=== PATIENT | female | born 1950 | race African-American/Black ===

== ENCOUNTER 2021-05-05 12:18 | Inpatient (IN) | payer MEDICARE ==
[~2021-05-05] VITALS: Ht 160 cm; Wt 48.2 kg
[2021-05-05] MEDS ORDERED: SODIUM CHLORIDE 0.9% 1,000 ML IV ONE (13:15)
[2021-05-05 13:54] LABS: BASOPHILS % 0.9 % (0.0-2.0); HEMATOCRIT. 27.4 % (36.0-48.0); HEMOGLOBIN. 9.1 g/dL (12.0-16.0); LYMPHOCYTES % 15.4 % (20.0-50.0); MEAN CORPUSCULAR HEMOGLOBIN 35.8 pg (28.0-32.0); MEAN CORPUSCULAR VOLUME 108.1 fL (81.0-99.0); MEAN PLATELET VOLUME 8.7 fl (7.4-10.4); NEUTROPHILS % 72.7 % (40.0-76.0); PLATELET 288 x1000/uL (130-400); RED BLOOD CELL COUNT 2.53 mill/uL (4.2-5.4); RED CELL DISTRIBUTION WIDTH 16.4 % (11.6-14.6)
[2021-05-05 14:00] LABS: CHLORIDE 113 mEq/L (98-107)
[2021-05-05 14:10] LABS: PHOSPHORUS 3.3 mg/dL (2.5-4.9)
[2021-05-05 17:33] LABS: T4 FREE 0.92 ng/dL (0.76-1.46)
[2021-05-05 22:38] LABS: CLARITY URINE CLOUDY (CLEAR); COLOR URINE YELLOW (YELLOW); KETONES URINE NEGATIVE (NEGATIVE); LEUKOCYTE ESTERASE URINE 3+ (NEGATIVE); NITRITE URINE NEGATIVE (NEGATIVE); OCCULT BLOOD URINE 1+ (NEGATIVE); PROTEIN URINE TRACE (NEGATIVE)
[2021-05-05 22:52] LABS: *BARBITURATES SCREEN URINE NEGATIVE (NEGATIVE); *BENZODIAZEPINES SCREEN URINE NEGATIVE (NEGATIVE); *COCAINE SCREEN URINE NEGATIVE (NEGATIVE); CANNABINOID URINE SCREEN PRESUMTIVE POSITIVE (NEGATIVE); METHADONE URINE SCREEN NEGATIVE (NEGATIVE); OPIATES URINE SCREEN PRESUMTIVE POSITIVE (NEGATIVE); PHENCYCLIDINE URINE SCREEN NEGATIVE (NEGATIVE)
[2021-05-05 22:53] LABS: *AMPHETAMINES SCREEN URINE NEGATIVE (NEGATIVE)
[2021-05-06 01:00] VITALS: BP 100/59
[2021-05-06] MEDS ORDERED: DOCUSATE SODIUM 100MG CAPSULE PO PRN (01:00)
[2021-05-06] MEDS ORDERED: ZOLPIDEM TARTRATE 5MG TABLET PO PRN (01:00)
[2021-05-06] MEDS ORDERED: IPRATROPIUM/ALBUTEROL 0.5-3(2.5)MG/3ML NEB HHN PRN (01:00)
[2021-05-06] MEDS ORDERED: CLONIDINE 0.1MG TABLET PO PRN (01:00)
[2021-05-06] MEDS ORDERED: ACETAMINOPHEN 325MG TABLET PO PRN (01:00)
[2021-05-06] MEDS ORDERED: ONDANSETRON HCL 4MG/2ML INJ IV PRN (01:00)
[2021-05-06] MEDS ORDERED: LEVOFLOXACIN 500MG PREMIX 100 ML IV SCH ×2 (02:00)
[2021-05-06 04:00] VITALS: BP 88/58
[2021-05-06] MEDS ORDERED: OXYC-100 MT (04:38)
[2021-05-06] MEDS ORDERED: LISI20TA31 PO (04:39)
[2021-05-06] MEDS ORDERED: BECL10.6 INH (04:40)
[2021-05-06] MEDS: PANTOPRAZOLE 40MG DR TABLET PO SCH ×2 (06:30→21:34)
[2021-05-06 06:57] LABS: BASOPHILS % 1.3 % (0.0-2.0); EOSINOPHILS % 7.6 % (0.0-5.0); HEMATOCRIT. 23.5 % (36.0-48.0); HEMOGLOBIN. 7.5 g/dL (12.0-16.0); LYMPHOCYTES % 23.1 % (20.0-50.0); MEAN CORPUSCULAR HEMOGLOBIN 35.6 pg (28.0-32.0); MEAN CORPUSCULAR VOLUME 111.5 fL (81.0-99.0); MONOCYTES % 6.7 % (2.0-8.0); NEUTROPHILS % 61.3 % (40.0-76.0); PLATELET 213 x1000/uL (130-400); RED CELL DISTRIBUTION WIDTH 16.9 % (11.6-14.6)
[2021-05-06 07:23] LABS: FOLIC ACID (FOLATE) SERUM 15.8 ng/mL (>5.38)
[2021-05-06 08:00] VITALS: BP 93/54
[2021-05-06] MEDS ORDERED: ENOXAPARIN 30MG/0.3ML SYR SUBCUT SCH (09:00)
[2021-05-06] MEDS ORDERED: ENOXAPARIN 40MG/0.4ML SYR SUBCUT SCH (09:00)
[2021-05-06 10:58] LABS: PLATELET ESTIMATE NORMAL
[2021-05-06 12:00] VITALS: BP 100/53
[2021-05-06 16:00] VITALS: BP 98/56
[2021-05-06 20:00] VITALS: BP 88/49
[2021-05-07] VITALS: BP 89/54
[2021-05-07 04:00] VITALS: BP 92/53
[2021-05-07] MEDS: PANTOPRAZOLE 40MG DR TABLET PO SCH (05:18)
[2021-05-07 07:38] LABS: EOSINOPHILS % 4.5 % (0.0-5.0); HEMATOCRIT. 23.4 % (36.0-48.0); HEMOGLOBIN. 7.6 g/dL (12.0-16.0); LYMPHOCYTES % 19.4 % (20.0-50.0); MEAN CORPUSCULAR HEMOGLOBIN 35.7 pg (28.0-32.0); MEAN CORPUSCULAR VOLUME 109.6 fL (81.0-99.0); MEAN PLATELET VOLUME 8.9 fl (7.4-10.4); NEUTROPHILS % 66.1 % (40.0-76.0); PLATELET 230 x1000/uL (130-400); RED BLOOD CELL COUNT 2.13 mill/uL (4.2-5.4); RED CELL DISTRIBUTION WIDTH 17.1 % (11.6-14.6)
[2021-05-07 08:27] LABS: VITAMIN B12 SERUM 1696 pg/mL (211-911)
[2021-05-07 10:32] LABS: FERRITIN 878 ng/mL (10-291)
[2021-05-07 12:00] VITALS: BP 112/70
[2021-05-07] MEDS ORDERED: LEVO500T89 MT (14:08)
[2021-05-07 14:50] VITALS: BP 112/70
[2021-05-07 15:06] LABS: HEPATITIS B SURFACE ANTIGEN NEGATIVE
[2021-05-08] MEDS ORDERED: LEVOFLOXACIN 250MG PREMIX 50 ML IV SCH (02:00)
[2021-05-09 07:07] LABS: A/G RATIO 0.7 (0.7-1.7); ALBUMIN 2.4 g/dL (2.9-4.4); ALPHA-1-GLOBULIN 0.2 g/dL (0.0-0.4); ALPHA-2-GLOBULIN 0.6 g/dL (0.4-1.0); BETA GLOBULIN 0.7 g/dL (0.7-1.3); GLOBULIN TOTAL 3.5 g/dL (2.2-3.9); M-SPIKE Not Observed g/dL (Not Observed); TOTAL PROTEIN SERUM 5.9 g/dL (6.0-8.5)
== END 2021-05-07 15:50 | disposition home or self-care (01) | DRG 291 ==
LOC: ER 12:18 → 7EST 20:26 → EDBEDREQ 20:49 → EDBEDREQTM 20:49 → ENRESERV 22:13
PROVIDERS: ADMIT Internal Medicine Pulmonary Disease; ATTEND Internal Medicine Pulmonary Disease
DX: I11.0 Hypertensive heart disease with heart failure (principal); E43 Unspecified severe protein-calorie malnutrition; N17.0 Acute kidney failure with tubular necrosis; N39.0 Urinary tract infection, site not specified; Z68.1 Body mass index [BMI] 19.9 or less, adult; I50.9 Heart failure, unspecified; J45.909 Unspecified asthma, uncomplicated; Z96.653 Presence of artificial knee joint, bilateral; D64.9 Anemia, unspecified; E04.1 Nontoxic single thyroid nodule; E87.8 Other disorders of electrolyte and fluid balance, not elsewhere classified; F12.90 Cannabis use, unspecified, uncomplicated; K76.0 Fatty (change of) liver, not elsewhere classified; K82.8 Other specified diseases of gallbladder; K70.10 Alcoholic hepatitis without ascites; Z79.899 Other long term (current) drug therapy; Z87.891 Personal history of nicotine dependence; Z90.710 Acquired absence of both cervix and uterus; Z91.041 Radiographic dye allergy status
CPT/HCPCS: 36415; 71045; 71250; 74176; 76700; 80048; 80053; 80076; 80305; 81003; 82248; 82378; 82553; 82607; 82728; 82746; 83540; 83550; 83605; 83735; 83880; 84100; 84134; 84155; 84165; 84439; 84443; 84481; 84484; 85025; 85044; 86705; 86709; 86803; 87340; 93005; 97162; 99285; J1650; J1956; J2405; J7030; J7040

== ENCOUNTER 2022-04-12 05:26 | Inpatient (IN) | payer MEDICARE ==
[~2022-04-12] VITALS: Ht 160 cm; Wt 43.5 kg
[~2022-04-12 05:26] MED LIST: BECL10.6 INH; LEVO-65 MT; LISI20TA31 PO; OXYC-100 MT
[2022-04-12 06:09] LABS: BASOPHILS % 0.3 % (0.0-2.0); EOSINOPHILS % 0.2 % (0.0-5.0); HEMATOCRIT. 39.1 % (36.0-48.0); HEMOGLOBIN. 13.1 g/dL (12.0-16.0); LYMPHOCYTES % 11.2 % (20.0-50.0); MEAN CORPUSCULAR HEMOGLOBIN 32.7 pg (28.0-32.0); MEAN CORPUSCULAR VOLUME 97.5 fL (81.0-99.0); MEAN PLATELET VOLUME 9.1 fl (7.4-10.4); MONOCYTES % 4.8 % (2.0-8.0); NEUTROPHILS % 83.5 % (40.0-76.0); PLATELET 163 x1000/uL (130-400); RED BLOOD CELL COUNT 4.01 mill/uL (4.2-5.4); RED CELL DISTRIBUTION WIDTH 12.8 % (11.6-14.6)
[2022-04-12 06:34] LABS: CHLORIDE 100 mEq/L (98-107)
[2022-04-12] MEDS ORDERED: METHYLPREDNISOLONE SOD SUCC 125 MG/2 ML VIAL IV STA (06:56)
[2022-04-12] MEDS ORDERED: ALBUTEROL (0.083%) 2.5MG/3ML NEB HHN STA (06:56)
[2022-04-12] MEDS ORDERED: ALBUTEROL (0.083%) 2.5MG/3ML NEB HHN ONE (08:00)
[2022-04-12 09:22] LABS: BG BASE EXCESS -10.1 mmol/L (-2.0-2.0); BG CARBOXYHEMOGLOBIN 0.1 % (0.5-1.5); BG DEOXYHEMOGLOBIN 0.3 % (0.0-5.0); BG FRACTION INSPIRED OXYGEN 100; BG HCO3 ACT 18.1 mmol/L (22.0-26.0); BG METHEMOGLOBIN 0.4 % (0.0-1.5); BG OXYGEN SATURATION 99.7 % (92.0-98.5); BG OXYHEMOGLOBIN 99.2 % (94.0-97.0); BG PH 7.186 (7.350-7.450); BG PO2 418.4 mmHg (75.0-100.0); BG SAMPLE SITE RIGHT RADIAL; BG TOTAL HEMOGLOBIN 14.1 g/dL (12.0-18.0); BG TOTAL RESPIRATORY RATE 32 b/min; BG VENT MODE MASK - BIPAP
[2022-04-12] MEDS ORDERED: ENOXAPARIN 60MG/0.6ML SYR SUBCUT ONE (10:45)
[2022-04-12] MEDS ORDERED: HYDROCODONE/ACETAMINOPHEN 10/325MG TABLET PO ONE (10:45)
[2022-04-12] MEDS ORDERED: AZITHROMYCIN 500MG/250ML 250 ML IV SCH ×2 (17:15→22:00)
[2022-04-12] MEDS ORDERED: ACETAMINOPHEN 325MG TABLET PO PRN (17:15)
[2022-04-12] MEDS ORDERED: GUAIFENESIN 200MG/10ML SUGAR FREE UDC PO PRN (17:15)
[2022-04-12] MEDS ORDERED: ONDANSETRON HCL 4MG/2ML INJ IV PRN (17:15)
[2022-04-12] MEDS ORDERED: ENOXAPARIN 40MG/0.4ML SYR SUBCUT SCH ×2 (17:15→18:00)
[2022-04-12] MEDS ORDERED: DOCUSATE SODIUM 100MG CAPSULE PO PRN (17:15)
[2022-04-12] MEDS: LISINOPRIL 20MG TABLET PO SCH (17:15)
[2022-04-12] MEDS ORDERED: MAGNESIUM/ALUMINUM HYDROXIDE/SIMETHICONE 30ML UDC PO PRN (17:15)
[2022-04-12 17:20] LABS: BG CARBOXYHEMOGLOBIN 0.2 % (0.5-1.5); BG DEOXYHEMOGLOBIN 1.9 % (0.0-5.0); BG OXYGEN SATURATION 98.1 % (92.0-98.5); BG OXYHEMOGLOBIN 97.9 % (94.0-97.0); BG PCO2 39.6 mmHg (35.0-45.0); BG PH 7.298 (7.350-7.450); BG PO2 108.3 mmHg (75.0-100.0); BG SAMPLE SITE RIGHT BRACHIAL; BG TOTAL HEMOGLOBIN 14.3 g/dL (12.0-18.0); BG VENT MODE MASK - BIPAP
[2022-04-12] MEDS: IPRATROPIUM/ALBUTEROL 0.5-3(2.5)MG/3ML NEB HHN SCH ×2 (17:51→20:37)
[2022-04-12] MEDS ORDERED: PIPERACILLIN/TAZ 3.375G PREMIX 50 ML IV SCH ×2 (18:00→22:00)
[2022-04-12 19:55] VITALS: BP 116/60
[2022-04-12 20:00] VITALS: BP 116/60
[2022-04-12] MEDS: FAMOTIDINE 20MG TABLET PO SCH (20:32)
[2022-04-12] MEDS: ATORVASTATIN CALCIUM 40MG TABLET PO SCH (20:33)
[2022-04-12] MEDS: METHYLPREDNISOLONE SOD SUCC 125 MG/2 ML VIAL IV SCH (21:49)
[2022-04-12] MEDS ORDERED: PIPERACILLIN/TAZOBACTAM 3.375 G in DEXTROSE 5% WATER 50 ML IV ONE (22:00)
[2022-04-13] VITALS (87 sets, daily range): BP systolic 80–180; BP diastolic 45–101
[2022-04-13 00:08] LABS: BG BASE EXCESS -8.7 mmol/L (-2.0-2.0); BG CARBOXYHEMOGLOBIN 0.3 % (0.5-1.5); BG FRACTION INSPIRED OXYGEN 50; BG HCO3 ACT 18.6 mmol/L (22.0-26.0); BG METHEMOGLOBIN 0.3 % (0.0-1.5); BG OXYHEMOGLOBIN 98.4 % (94.0-97.0); BG PH 7.234 (7.350-7.450); BG PO2 168.5 mmHg (75.0-100.0); BG SAMPLE SITE LEFT BRACHIAL; BG TOTAL HEMOGLOBIN 13.7 g/dL (12.0-18.0); BG VENT MODE MASK - BIPAP
[2022-04-13] MEDS ORDERED: SODIUM CHLORIDE 0.9% 1,000 ML IV NR (00:30)
[2022-04-13] MEDS ORDERED: PHENYLEPHRINE 100 MG in DEXT 5% WATER 240 ML IV PRN (01:15)
[2022-04-13] MEDS ORDERED: PHENYLEPHRINE 50 MG in DEXT 5% WATER 245 ML IV PRN (01:15)
[2022-04-13 01:53] LABS: BG BASE EXCESS -8.6 mmol/L (-2.0-2.0); BG CARBOXYHEMOGLOBIN 0.4 % (0.5-1.5); BG DEOXYHEMOGLOBIN 1.6 % (0.0-5.0); BG FRACTION INSPIRED OXYGEN 50; BG HCO3 ACT 17.5 mmol/L (22.0-26.0); BG METHEMOGLOBIN 0.3 % (0.0-1.5); BG OXYGEN SATURATION 98.4 % (92.0-98.5); BG OXYHEMOGLOBIN 97.7 % (94.0-97.0); BG PCO2 38.3 mmHg (35.0-45.0); BG PH 7.278 (7.350-7.450); BG PO2 127.1 mmHg (75.0-100.0); BG SAMPLE SITE RIGHT BRACHIAL; BG TOTAL RESPIRATORY RATE 22 b/min; BG VENT MODE VENT - AC
[2022-04-13] MEDS: LORAZEPAM 2MG/ML CPJ IV PRN ×4 (02:41→22:23)
[2022-04-13] MEDS: IPRATROPIUM/ALBUTEROL 0.5-3(2.5)MG/3ML NEB HHN SCH ×5 (04:35→20:50)
[2022-04-13 05:40] LABS: BASOPHILS % 0.1 % (0.0-2.0); HEMATOCRIT. 38.5 % (36.0-48.0); HEMOGLOBIN. 13.1 g/dL (12.0-16.0); LYMPHOCYTES % 8.4 % (20.0-50.0); MEAN CORPUSCULAR HEMOGLOBIN 33.3 pg (28.0-32.0); MEAN CORPUSCULAR VOLUME 97.9 fL (81.0-99.0); MEAN PLATELET VOLUME 10.6 fl (7.4-10.4); MONOCYTES % 3.5 % (2.0-8.0); PLATELET 150 x1000/uL (130-400); RED BLOOD CELL COUNT 3.93 mill/uL (4.2-5.4); RED CELL DISTRIBUTION WIDTH 12.9 % (11.6-14.6)
[2022-04-13] MEDS: METHYLPREDNISOLONE SOD SUCC 125 MG/2 ML VIAL IV SCH ×3 (05:48→21:59)
[2022-04-13 05:49] LABS: CHLORIDE 103 mEq/L (98-107)
[2022-04-13] MEDS: PIPERACILLIN/TAZOBACTAM 3.375 G in DEXTROSE 5% WATER 50 ML IV SCH ×2 (05:49→13:02)
[2022-04-13] MEDS ORDERED: ACETAMINOPHEN 650MG/20.3ML UDC PO PRN (08:00)
[2022-04-13] MEDS: FAMOTIDINE 20MG TABLET PO SCH ×2 (08:05→20:50)
[2022-04-13] MEDS: LISINOPRIL 20MG TABLET PO SCH (08:05)
[2022-04-13] MEDS: ACETAMINOPHEN 650MG/20.3ML UDC PO PRN (08:08)
[2022-04-13 08:24] LABS: BG BASE EXCESS -4.5 mmol/L (-2.0-2.0); BG CARBOXYHEMOGLOBIN 0.8 % (0.5-1.5); BG DEOXYHEMOGLOBIN 1.8 % (0.0-5.0); BG FRACTION INSPIRED OXYGEN 40; BG HCO3 ACT 18.7 mmol/L (22.0-26.0); BG METHEMOGLOBIN 0.2 % (0.0-1.5); BG OXYGEN SATURATION 98.2 % (92.0-98.5); BG OXYHEMOGLOBIN 97.2 % (94.0-97.0); BG PCO2 29.7 mmHg (35.0-45.0); BG PH 7.416 (7.350-7.450); BG PO2 99.9 mmHg (75.0-100.0); BG SAMPLE SITE RIGHT RADIAL; BG TOTAL HEMOGLOBIN 14.4 g/dL (12.0-18.0); BG VENT MODE VENT - AC
[2022-04-13] MEDS ORDERED: CEFTRIAXONE 1 G PREMIX 50 ML IV SCH (13:00)
[2022-04-13] MEDS: ENOXAPARIN 30MG/0.3ML SYR SUBCUT SCH (14:13)
[2022-04-13] MEDS: AZITHROMYCIN 500MG in DEXTROSE 5% WATER 250ML IV SCH (17:39)
[2022-04-13] MEDS: SODIUM CHLORIDE 0.9% 1,000 ML IV SCH (20:07)
[2022-04-13] MEDS: CEFTRIAXONE 1,000 MG in DEXTROSE 5% WATER 50 ML IV SCH (20:43)
[2022-04-13] MEDS: ATORVASTATIN CALCIUM 40MG TABLET PO SCH (20:50)
[2022-04-13] MEDS ORDERED: PREDNISONE 20MG TABLET PO NR (22:00)
[2022-04-14] VITALS (44 sets, daily range): BP systolic 88–123; BP diastolic 50–84
[2022-04-14] MEDS: IPRATROPIUM/ALBUTEROL 0.5-3(2.5)MG/3ML NEB HHN SCH ×7 (00:02→23:58)
[2022-04-14] MEDS ORDERED: SODIUM CHLORIDE 0.9% 1,000 ML IV SCH (00:30)
[2022-04-14] MEDS ORDERED: PREDNISONE 20MG TABLET PO NR ×2 (04:00→10:00)
[2022-04-14] MEDS: METHYLPREDNISOLONE SOD SUCC 125 MG/2 ML VIAL IV SCH ×3 (05:40→22:06)
[2022-04-14 06:40] LABS: HEMATOCRIT 36.9 % (36.0-48.0); HEMOGLOBIN 12.4 g/dL (12.0-16.0); MEAN CORPUSCULAR HEMOGLOBIN 32.8 pg (28.0-32.0); MEAN CORPUSCULAR VOLUME 97.8 fL (81.0-99.0); PLATELET 167 x1000/uL (130-400); RED BLOOD CELL COUNT 3.77 mill/uL (4.2-5.4); RED CELL DISTRIBUTION WIDTH 13.2 % (11.6-14.6)
[2022-04-14 07:14] LABS: CHLORIDE 102 mEq/L (98-107)
[2022-04-14 07:36] LABS: BG BASE EXCESS -6.3 mmol/L (-2.0-2.0); BG CARBOXYHEMOGLOBIN 0.3 % (0.5-1.5); BG DEOXYHEMOGLOBIN 1.3 % (0.0-5.0); BG HCO3 ACT 16.4 mmol/L (22.0-26.0); BG METHEMOGLOBIN 0.3 % (0.0-1.5); BG OXYGEN SATURATION 98.7 % (92.0-98.5); BG OXYHEMOGLOBIN 98.1 % (94.0-97.0); BG PCO2 25.4 mmHg (35.0-45.0); BG PH 7.428 (7.350-7.450); BG PO2 139.2 mmHg (75.0-100.0); BG SAMPLE SITE RIGHT BRACHIAL; BG TOTAL HEMOGLOBIN 12.9 g/dL (12.0-18.0); BG VENT MODE VENT - AC
[2022-04-14] MEDS: FAMOTIDINE 20MG TABLET PO SCH ×2 (08:45→20:37)
[2022-04-14] MEDS: LISINOPRIL 20MG TABLET PO SCH (08:45)
[2022-04-14] MEDS ORDERED: DIPHENHYDRAMINE 50MG/ML VIAL IV NR (10:00)
[2022-04-14] MEDS ORDERED: IOHEXOL-350 100 ML BOTTLE ONE (12:02)
[2022-04-14] MEDS: ENOXAPARIN 30MG/0.3ML SYR SUBCUT SCH (13:56)
[2022-04-14] MEDS: SODIUM CHLORIDE 0.9% 1,000 ML IV SCH (14:00)
[2022-04-14] MEDS: AZITHROMYCIN 500MG in DEXTROSE 5% WATER 250ML IV SCH (16:50)
[2022-04-14] MEDS: ACETAMINOPHEN 650MG/20.3ML UDC PO PRN (19:57)
[2022-04-14] MEDS: LORAZEPAM 2MG/ML CPJ IV PRN (19:57)
[2022-04-14] MEDS: CEFTRIAXONE 1,000 MG in DEXTROSE 5% WATER 50 ML IV SCH (20:37)
[2022-04-14] MEDS: ATORVASTATIN CALCIUM 40MG TABLET PO SCH (20:37)
[2022-04-15] VITALS (40 sets, daily range): BP systolic 100–126; BP diastolic 51–86
[2022-04-15] MEDS: IPRATROPIUM/ALBUTEROL 0.5-3(2.5)MG/3ML NEB HHN SCH ×5 (04:16→20:59)
[2022-04-15] MEDS: LORAZEPAM 2MG/ML CPJ IV PRN ×2 (04:16→13:39)
[2022-04-15 05:27] LABS: HEMATOCRIT. 37.1 % (36.0-48.0); HEMOGLOBIN. 12.6 g/dL (12.0-16.0); MEAN CORPUSCULAR HEMOGLOBIN 33.2 pg (28.0-32.0); MEAN CORPUSCULAR VOLUME 97.7 fL (81.0-99.0); MEAN PLATELET VOLUME 9.7 fl (7.4-10.4); PLATELET 173 x1000/uL (130-400); RED CELL DISTRIBUTION WIDTH 12.9 % (11.6-14.6)
[2022-04-15 05:28] LABS: CHLORIDE 110 mEq/L (98-107)
[2022-04-15] MEDS: METHYLPREDNISOLONE SOD SUCC 125 MG/2 ML VIAL IV SCH ×3 (05:48→21:06)
[2022-04-15 07:29] LABS: PLATELET ESTIMATE NORMAL
[2022-04-15] MEDS: LISINOPRIL 20MG TABLET PO SCH (08:14)
[2022-04-15] MEDS: FAMOTIDINE 20MG TABLET PO SCH ×2 (08:14→21:07)
[2022-04-15 08:58] LABS: BG BASE EXCESS -6.1 mmol/L (-2.0-2.0); BG CARBOXYHEMOGLOBIN 0.3 % (0.5-1.5); BG DEOXYHEMOGLOBIN 2.2 % (0.0-5.0); BG FRACTION INSPIRED OXYGEN 30; BG HCO3 ACT 17.3 mmol/L (22.0-26.0); BG METHEMOGLOBIN 0.3 % (0.0-1.5); BG OXYGEN SATURATION 97.8 % (92.0-98.5); BG OXYHEMOGLOBIN 97.2 % (94.0-97.0); BG PCO2 28.3 mmHg (35.0-45.0); BG PH 7.404 (7.350-7.450); BG PO2 105.7 mmHg (75.0-100.0); BG SAMPLE SITE RIGHT BRACHIAL; BG TOTAL HEMOGLOBIN 12.4 g/dL (12.0-18.0); BG VENT MODE VENT - AC
[2022-04-15] MEDS ORDERED: POTASSIUM CHLORIDE INJ 40 MEQ in DEXT 5% WATER 250 ML IV ONE (09:00)
[2022-04-15] MEDS: ASPIRIN 81MG TABLET PO SCH (09:36)
[2022-04-15] MEDS ORDERED: ENOXAPARIN 40MG/0.4ML SYR SUBCUT SCH (10:00)
[2022-04-15] MEDS: KCL 20MEQ/100ML X 2 FOR TOTAL KCL 40MEQ/200ML IV SCH ×2 (10:07→12:14)
[2022-04-15] MEDS: SODIUM CHLORIDE 0.9% 1,000 ML IV SCH (10:07)
[2022-04-15] MEDS: ACETAMINOPHEN 650MG/20.3ML UDC PO PRN (12:11)
[2022-04-15 16:08] LABS: INR 1.1; PROTHROMBIN TIME 11.3 sec (9.6-11.0)
[2022-04-15] MEDS: AZITHROMYCIN 500MG in DEXTROSE 5% WATER 250ML IV SCH (17:16)
[2022-04-15] MEDS ORDERED: SODIUM BICARBONATE 8.4% 1 MEQ/ML 50ML SYR IV NR (21:00)
[2022-04-15] MEDS: CEFTRIAXONE 1,000 MG in DEXTROSE 5% WATER 50 ML IV SCH (21:06)
[2022-04-15] MEDS: CARVEDILOL 3.125 MG TABLET PO SCH (21:07)
[2022-04-15] MEDS: ATORVASTATIN CALCIUM 40MG TABLET PO SCH (21:07)
[2022-04-15] MEDS: CALCITONIN,SALMON, 3.7 ML NASAL SPRAY ONENSTRL SCH (22:07)
[2022-04-16] VITALS (57 sets, daily range): BP systolic 91–140; BP diastolic 65–94
[2022-04-16] MEDS: IPRATROPIUM/ALBUTEROL 0.5-3(2.5)MG/3ML NEB HHN SCH ×6 (00:39→20:40)
[2022-04-16 05:59] LABS: HEMATOCRIT. 37.4 % (36.0-48.0); HEMOGLOBIN. 12.8 g/dL (12.0-16.0); MEAN CORPUSCULAR HEMOGLOBIN 32.9 pg (28.0-32.0); MEAN CORPUSCULAR VOLUME 96.1 fL (81.0-99.0); MEAN PLATELET VOLUME 9.9 fl (7.4-10.4); PLATELET 247 x1000/uL (130-400); RED BLOOD CELL COUNT 3.89 mill/uL (4.2-5.4)
[2022-04-16] MEDS: METHYLPREDNISOLONE SOD SUCC 125 MG/2 ML VIAL IV SCH ×3 (06:11→21:17)
[2022-04-16] MEDS: SODIUM CHLORIDE 0.9% 1,000 ML IV SCH (06:11)
[2022-04-16 06:12] LABS: CHLORIDE 110 mEq/L (98-107)
[2022-04-16 07:23] LABS: PLATELET ESTIMATE NORMAL
[2022-04-16 08:25] LABS: BG CARBOXYHEMOGLOBIN 0.3 % (0.5-1.5); BG DEOXYHEMOGLOBIN 1.2 % (0.0-5.0); BG FRACTION INSPIRED OXYGEN 40; BG HCO3 ACT 19.5 mmol/L (22.0-26.0); BG METHEMOGLOBIN 0.3 % (0.0-1.5); BG OXYGEN SATURATION 98.8 % (92.0-98.5); BG OXYHEMOGLOBIN 98.2 % (94.0-97.0); BG PH 7.461 (7.350-7.450); BG PO2 145.3 mmHg (75.0-100.0); BG SAMPLE SITE RIGHT RADIAL; BG TOTAL HEMOGLOBIN 13.1 g/dL (12.0-18.0); BG VENT MODE VENT - AC
[2022-04-16] MEDS ORDERED: LISINOPRIL 20MG TABLET PO SCH (09:00)
[2022-04-16] MEDS: ASPIRIN 81MG TABLET PO SCH (09:05)
[2022-04-16] MEDS: CALCITONIN,SALMON, 3.7 ML NASAL SPRAY ONENSTRL SCH (09:05)
[2022-04-16] MEDS: FAMOTIDINE 20MG TABLET PO SCH ×2 (09:05→21:17)
[2022-04-16] MEDS: ENOXAPARIN 30MG/0.3ML SYR SUBCUT SCH (09:06)
[2022-04-16] MEDS: CITALOPRAM HYDROBROMIDE 10MG TABLET PO SCH (09:06)
[2022-04-16] MEDS: CARVEDILOL 3.125 MG TABLET PO SCH ×2 (09:06→21:16)
[2022-04-16] MEDS: HYDROCODONE/ACETAMINOPHEN 5/325MG TABLET PO PRN ×2 (15:09→21:17)
[2022-04-16 16:24] LABS: CLARITY URINE CLEAR (CLEAR); COLOR URINE YELLOW (YELLOW); KETONES URINE 1+ (NEGATIVE); LEUKOCYTE ESTERASE URINE NEGATIVE (NEGATIVE); NITRITE URINE NEGATIVE (NEGATIVE); OCCULT BLOOD URINE TRACE (NEGATIVE); PROTEIN URINE 1+ (NEGATIVE); SPECIFIC GRAVITY URINE 1.031 (1.005-1.030); UROBILINOGEN URINE 0.2 E.U./dL (0.2-1.0)
[2022-04-16] MEDS: AZITHROMYCIN 500MG in DEXTROSE 5% WATER 250ML IV SCH (16:31)
[2022-04-16] MEDS: CEFTRIAXONE 1,000 MG in DEXTROSE 5% WATER 50 ML IV SCH (21:16)
[2022-04-16] MEDS: ATORVASTATIN CALCIUM 40MG TABLET PO SCH (21:17)
[2022-04-17] VITALS (39 sets, daily range): BP systolic 98–156; BP diastolic 71–99
[2022-04-17] MEDS: IPRATROPIUM/ALBUTEROL 0.5-3(2.5)MG/3ML NEB HHN SCH ×6 (00:33→20:54)
[2022-04-17] MEDS: HYDROCODONE/ACETAMINOPHEN 5/325MG TABLET PO PRN ×5 (03:19→22:26)
[2022-04-17] MEDS: SODIUM CHLORIDE 0.9% 1,000 ML IV SCH ×2 (03:20→23:00)
[2022-04-17] MEDS: METHYLPREDNISOLONE SOD SUCC 125 MG/2 ML VIAL IV SCH ×3 (05:21→21:48)
[2022-04-17 05:47] LABS: BASOPHILS % 0.1 % (0.0-2.0); HEMATOCRIT. 34.1 % (36.0-48.0); HEMOGLOBIN. 11.5 g/dL (12.0-16.0); LYMPHOCYTES % 8.9 % (20.0-50.0); MEAN CORPUSCULAR HEMOGLOBIN 32.6 pg (28.0-32.0); MEAN CORPUSCULAR VOLUME 96.3 fL (81.0-99.0); MEAN PLATELET VOLUME 9.9 fl (7.4-10.4); MONOCYTES % 3.7 % (2.0-8.0); NEUTROPHILS % 87.3 % (40.0-76.0); PLATELET 163 x1000/uL (130-400); RED BLOOD CELL COUNT 3.54 mill/uL (4.2-5.4); RED CELL DISTRIBUTION WIDTH 13.2 % (11.6-14.6)
[2022-04-17 06:04] LABS: CHLORIDE 113 mEq/L (98-107)
[2022-04-17 08:14] LABS: BG BASE EXCESS -1.9 mmol/L (-2.0-2.0); BG CARBOXYHEMOGLOBIN 0.3 % (0.5-1.5); BG DEOXYHEMOGLOBIN 1.3 % (0.0-5.0); BG HCO3 ACT 20.5 mmol/L (22.0-26.0); BG METHEMOGLOBIN 0.2 % (0.0-1.5); BG OXYGEN SATURATION 98.7 % (92.0-98.5); BG OXYHEMOGLOBIN 98.2 % (94.0-97.0); BG PCO2 28.2 mmHg (35.0-45.0); BG PO2 161.6 mmHg (75.0-100.0); BG SAMPLE SITE RIGHT BRACHIAL; BG VENT MODE VENT - AC
[2022-04-17] MEDS: ASPIRIN 81MG TABLET PO SCH (09:35)
[2022-04-17] MEDS: CITALOPRAM HYDROBROMIDE 10MG TABLET PO SCH (09:35)
[2022-04-17] MEDS: ENOXAPARIN 30MG/0.3ML SYR SUBCUT SCH (09:35)
[2022-04-17] MEDS: CARVEDILOL 3.125 MG TABLET PO SCH ×2 (09:36→21:48)
[2022-04-17] MEDS: LISINOPRIL 5MG TABLET PO SCH (09:40)
[2022-04-17] MEDS: FAMOTIDINE 20MG TABLET PO SCH ×2 (09:40→21:48)
[2022-04-17] MEDS ORDERED: NALOXONE HCL 0.4MG/ML VIAL IV PRN (09:45)
[2022-04-17 14:10] LABS: BG BASE EXCESS -4.7 mmol/L (-2.0-2.0); BG CARBOXYHEMOGLOBIN 0.3 % (0.5-1.5); BG DEOXYHEMOGLOBIN 1.3 % (0.0-5.0); BG HCO3 ACT 20.2 mmol/L (22.0-26.0); BG METHEMOGLOBIN 0.2 % (0.0-1.5); BG OXYGEN SATURATION 98.7 % (92.0-98.5); BG OXYHEMOGLOBIN 98.2 % (94.0-97.0); BG PH 7.356 (7.350-7.450); BG PO2 155.4 mmHg (75.0-100.0); BG SAMPLE SITE RIGHT BRACHIAL; BG TOTAL HEMOGLOBIN 12.6 g/dL (12.0-18.0); BG VENT MODE VENT - SIMV
[2022-04-17] MEDS: ATORVASTATIN CALCIUM 40MG TABLET PO SCH (21:48)
[2022-04-17] MEDS: CEFTRIAXONE 1,000 MG in DEXTROSE 5% WATER 50 ML IV SCH (21:48)
[2022-04-18] VITALS (45 sets, daily range): BP systolic 102–158; BP diastolic 71–104
[2022-04-18] MEDS: IPRATROPIUM/ALBUTEROL 0.5-3(2.5)MG/3ML NEB HHN SCH ×7 (00:28→23:58)
[2022-04-18] MEDS: HYDROCODONE/ACETAMINOPHEN 5/325MG TABLET PO PRN ×4 (02:57→22:47)
[2022-04-18 05:27] LABS: BASOPHILS % 0.1 % (0.0-2.0); HEMATOCRIT. 32.7 % (36.0-48.0); HEMOGLOBIN. 11.3 g/dL (12.0-16.0); LYMPHOCYTES % 7.8 % (20.0-50.0); MEAN CORPUSCULAR HEMOGLOBIN 33.2 pg (28.0-32.0); MEAN CORPUSCULAR VOLUME 96.3 fL (81.0-99.0); MEAN PLATELET VOLUME 9.8 fl (7.4-10.4); MONOCYTES % 3.7 % (2.0-8.0); NEUTROPHILS % 88.4 % (40.0-76.0); PLATELET 166 x1000/uL (130-400); RED CELL DISTRIBUTION WIDTH 13.2 % (11.6-14.6)
[2022-04-18 05:37] LABS: CHLORIDE 114 mEq/L (98-107)
[2022-04-18] MEDS: METHYLPREDNISOLONE SOD SUCC 125 MG/2 ML VIAL IV SCH ×3 (05:41→21:30)
[2022-04-18] MEDS: FAMOTIDINE 20MG TABLET PO SCH ×2 (08:37→21:31)
[2022-04-18] MEDS: CARVEDILOL 3.125 MG TABLET PO SCH ×2 (08:38→21:31)
[2022-04-18] MEDS: LISINOPRIL 5MG TABLET PO SCH (08:38)
[2022-04-18] MEDS: ASPIRIN 81MG TABLET PO SCH (08:38)
[2022-04-18] MEDS: CITALOPRAM HYDROBROMIDE 10MG TABLET PO SCH (08:38)
[2022-04-18] MEDS: ENOXAPARIN 30MG/0.3ML SYR SUBCUT SCH (08:38)
[2022-04-18 09:12] LABS: BG CARBOXYHEMOGLOBIN 0.3 % (0.5-1.5); BG DEOXYHEMOGLOBIN 2.3 % (0.0-5.0); BG FRACTION INSPIRED OXYGEN 40; BG HCO3 ACT 18.9 mmol/L (22.0-26.0); BG METHEMOGLOBIN 0.2 % (0.0-1.5); BG OXYGEN SATURATION 97.7 % (92.0-98.5); BG OXYHEMOGLOBIN 97.2 % (94.0-97.0); BG PCO2 28.5 mmHg (35.0-45.0); BG PO2 97.6 mmHg (75.0-100.0); BG SAMPLE SITE RIGHT RADIAL; BG TOTAL HEMOGLOBIN 12.3 g/dL (12.0-18.0); BG VENT MODE VENT - AC
[2022-04-18] MEDS: SODIUM CHLORIDE 0.9% 1,000 ML IV SCH (21:00)
[2022-04-18] MEDS: CEFTRIAXONE 1,000 MG in DEXTROSE 5% WATER 50 ML IV SCH (21:30)
[2022-04-18] MEDS: ATORVASTATIN CALCIUM 40MG TABLET PO SCH (21:30)
[2022-04-19] VITALS (45 sets, daily range): BP systolic 106–159; BP diastolic 66–102
[2022-04-19] MEDS: HYDROCODONE/ACETAMINOPHEN 5/325MG TABLET PO PRN ×5 (02:58→21:24)
[2022-04-19] MEDS: IPRATROPIUM/ALBUTEROL 0.5-3(2.5)MG/3ML NEB HHN SCH ×5 (03:50→20:37)
[2022-04-19 03:54] LABS: HEMATOCRIT. 36.4 % (36.0-48.0); HEMOGLOBIN. 12.2 g/dL (12.0-16.0); MEAN CORPUSCULAR HEMOGLOBIN 32.6 pg (28.0-32.0); MEAN CORPUSCULAR VOLUME 97.6 fL (81.0-99.0); MEAN PLATELET VOLUME 9.4 fl (7.4-10.4); PLATELET 189 x1000/uL (130-400); RED BLOOD CELL COUNT 3.73 mill/uL (4.2-5.4); RED CELL DISTRIBUTION WIDTH 13.3 % (11.6-14.6)
[2022-04-19 04:06] LABS: CHLORIDE 115 mEq/L (98-107)
[2022-04-19] MEDS: METHYLPREDNISOLONE SOD SUCC 125 MG/2 ML VIAL IV SCH ×3 (05:21→21:24)
[2022-04-19] MEDS: LISINOPRIL 5MG TABLET PO SCH (08:48)
[2022-04-19] MEDS: ASPIRIN 81MG TABLET PO SCH (08:48)
[2022-04-19] MEDS: CITALOPRAM HYDROBROMIDE 10MG TABLET PO SCH (08:48)
[2022-04-19] MEDS: CARVEDILOL 3.125 MG TABLET PO SCH ×2 (08:48→21:24)
[2022-04-19] MEDS: ENOXAPARIN 30MG/0.3ML SYR SUBCUT SCH (08:48)
[2022-04-19] MEDS: FAMOTIDINE 20MG TABLET PO SCH ×2 (08:48→21:23)
[2022-04-19] MEDS: CALCITONIN,SALMON, 3.7 ML NASAL SPRAY ONENSTRL SCH (08:49)
[2022-04-19 09:09] LABS: BG BASE EXCESS -2.5 mmol/L (-2.0-2.0); BG CARBOXYHEMOGLOBIN 0.3 % (0.5-1.5); BG DEOXYHEMOGLOBIN 0.9 % (0.0-5.0); BG FRACTION INSPIRED OXYGEN 40; BG HCO3 ACT 20.3 mmol/L (22.0-26.0); BG METHEMOGLOBIN 0.6 % (0.0-1.5); BG OXYGEN SATURATION 99.1 % (92.0-98.5); BG OXYHEMOGLOBIN 98.2 % (94.0-97.0); BG PCO2 29.4 mmHg (35.0-45.0); BG PH 7.456 (7.350-7.450); BG PO2 194.9 mmHg (75.0-100.0); BG SAMPLE SITE RIGHT RADIAL; BG VENT MODE VENT - AC
[2022-04-19 10:00] LABS: PLATELET ESTIMATE NORMAL
[2022-04-19 14:32] LABS: BG CARBOXYHEMOGLOBIN 0.1 % (0.5-1.5); BG DEOXYHEMOGLOBIN 1.5 % (0.0-5.0); BG FRACTION INSPIRED OXYGEN 40; BG HCO3 ACT 20.4 mmol/L (22.0-26.0); BG METHEMOGLOBIN 0.3 % (0.0-1.5); BG OXYGEN SATURATION 98.5 % (92.0-98.5); BG OXYHEMOGLOBIN 98.1 % (94.0-97.0); BG PCO2 34.8 mmHg (35.0-45.0); BG PH 7.385 (7.350-7.450); BG PO2 132.2 mmHg (75.0-100.0); BG SAMPLE SITE RIGHT RADIAL; BG TOTAL HEMOGLOBIN 12.8 g/dL (12.0-18.0); BG TOTAL RESPIRATORY RATE 22 b/min; BG VENT MODE VENT - SIMV
[2022-04-19] MEDS: IPRATROPIUM/ALBUTEROL 0.5-3(2.5)MG/3ML NEB HHN PRN (14:50)
[2022-04-19] MEDS: SODIUM CHLORIDE 0.9% 1,000 ML IV SCH (18:39)
[2022-04-19] MEDS: ATORVASTATIN CALCIUM 40MG TABLET PO SCH (21:24)
[2022-04-20] VITALS (36 sets, daily range): BP systolic 115–165; BP diastolic 73–108
[2022-04-20] MEDS: IPRATROPIUM/ALBUTEROL 0.5-3(2.5)MG/3ML NEB HHN SCH ×6 (00:36→20:22)
[2022-04-20] MEDS: HYDROCODONE/ACETAMINOPHEN 5/325MG TABLET PO PRN ×4 (01:32→22:55)
[2022-04-20 05:29] LABS: HEMATOCRIT. 34.4 % (36.0-48.0); HEMOGLOBIN. 11.4 g/dL (12.0-16.0); MEAN CORPUSCULAR HEMOGLOBIN 32.9 pg (28.0-32.0); MEAN CORPUSCULAR VOLUME 99.2 fL (81.0-99.0); MEAN PLATELET VOLUME 9.8 fl (7.4-10.4); PLATELET 155 x1000/uL (130-400); RED BLOOD CELL COUNT 3.47 mill/uL (4.2-5.4); RED CELL DISTRIBUTION WIDTH 13.4 % (11.6-14.6)
[2022-04-20 05:36] LABS: CHLORIDE 117 mEq/L (98-107)
[2022-04-20 05:48] LABS: PHOSPHORUS 2.9 mg/dL (2.5-4.9)
[2022-04-20] MEDS: METHYLPREDNISOLONE SOD SUCC 125 MG/2 ML VIAL IV SCH ×3 (05:54→21:00)
[2022-04-20 09:02] LABS: BG BASE EXCESS -2.1 mmol/L (-2.0-2.0); BG CARBOXYHEMOGLOBIN 1.2 % (0.5-1.5); BG DEOXYHEMOGLOBIN 0.6 % (0.0-5.0); BG FRACTION INSPIRED OXYGEN 40; BG HCO3 ACT 20.4 mmol/L (22.0-26.0); BG METHEMOGLOBIN 0.3 % (0.0-1.5); BG OXYGEN SATURATION 99.4 % (92.0-98.5); BG OXYHEMOGLOBIN 97.9 % (94.0-97.0); BG PCO2 28.7 mmHg (35.0-45.0); BG PO2 130.6 mmHg (75.0-100.0); BG SAMPLE SITE RIGHT BRACHIAL; BG TOTAL HEMOGLOBIN 12.5 g/dL (12.0-18.0); BG VENT MODE VENT - AC
[2022-04-20] MEDS: ASPIRIN 81MG TABLET PO SCH (09:34)
[2022-04-20] MEDS: LISINOPRIL 5MG TABLET PO SCH (09:34)
[2022-04-20] MEDS: FAMOTIDINE 20MG TABLET PO SCH ×2 (09:34→20:58)
[2022-04-20] MEDS: CALCITONIN,SALMON, 3.7 ML NASAL SPRAY ONENSTRL SCH (09:34)
[2022-04-20] MEDS: CITALOPRAM HYDROBROMIDE 10MG TABLET PO SCH (09:34)
[2022-04-20] MEDS: ENOXAPARIN 30MG/0.3ML SYR SUBCUT SCH (09:34)
[2022-04-20] MEDS: CARVEDILOL 3.125 MG TABLET PO SCH ×2 (09:34→20:59)
[2022-04-20 10:43] LABS: PLATELET ESTIMATE NORMAL
[2022-04-20] MEDS: SODIUM CHLORIDE 0.9% 1,000 ML IV SCH (11:20)
[2022-04-20] MEDS: ATORVASTATIN CALCIUM 40MG TABLET PO SCH (20:59)
[2022-04-21] VITALS (39 sets, daily range): BP systolic 106–186; BP diastolic 66–119
[2022-04-21] MEDS: IPRATROPIUM/ALBUTEROL 0.5-3(2.5)MG/3ML NEB HHN SCH ×6 (00:43→20:09)
[2022-04-21] MEDS: HYDROCODONE/ACETAMINOPHEN 5/325MG TABLET PO PRN ×4 (04:01→20:15)
[2022-04-21] MEDS: METHYLPREDNISOLONE SOD SUCC 125 MG/2 ML VIAL IV SCH ×3 (05:26→22:20)
[2022-04-21 06:03] LABS: HEMATOCRIT. 32.4 % (36.0-48.0); MEAN CORPUSCULAR VOLUME 97.1 fL (81.0-99.0); MEAN PLATELET VOLUME 9.8 fl (7.4-10.4); PLATELET 164 x1000/uL (130-400); RED BLOOD CELL COUNT 3.33 mill/uL (4.2-5.4); RED CELL DISTRIBUTION WIDTH 13.1 % (11.6-14.6)
[2022-04-21 06:24] LABS: CHLORIDE 116 mEq/L (98-107)
[2022-04-21] MEDS: SODIUM CHLORIDE 0.9% 1,000 ML IV SCH (07:00)
[2022-04-21 07:08] LABS: PLATELET ESTIMATE NORMAL
[2022-04-21 07:39] LABS: BG BASE EXCESS -2.8 mmol/L (-2.0-2.0); BG CARBOXYHEMOGLOBIN 0.3 % (0.5-1.5); BG DEOXYHEMOGLOBIN 2.5 % (0.0-5.0); BG METHEMOGLOBIN 0.3 % (0.0-1.5); BG OXYGEN SATURATION 97.5 % (92.0-98.5); BG OXYHEMOGLOBIN 96.9 % (94.0-97.0); BG PCO2 28.7 mmHg (35.0-45.0); BG PO2 99.1 mmHg (75.0-100.0); BG SAMPLE SITE RIGHT BRACHIAL; BG TOTAL HEMOGLOBIN 12.1 g/dL (12.0-18.0); BG VENT MODE VENT - AC
[2022-04-21] MEDS: CITALOPRAM HYDROBROMIDE 10MG TABLET PO SCH (08:14)
[2022-04-21] MEDS: LISINOPRIL 5MG TABLET PO SCH (08:15)
[2022-04-21] MEDS: CARVEDILOL 3.125 MG TABLET PO SCH ×2 (08:15→20:55)
[2022-04-21] MEDS: ASPIRIN 81MG TABLET PO SCH (08:15)
[2022-04-21] MEDS: FAMOTIDINE 20MG TABLET PO SCH ×2 (08:17→20:55)
[2022-04-21] MEDS: CALCITONIN,SALMON, 3.7 ML NASAL SPRAY ONENSTRL SCH (08:17)
[2022-04-21] MEDS: DEXMEDETOMIDINE 400 MCG/100 ML 100 ML IV PRN (08:18)
[2022-04-21] MEDS: ENOXAPARIN 30MG/0.3ML SYR SUBCUT SCH (08:19)
[2022-04-21] MEDS ORDERED: NALOXONE HCL 0.4MG/ML VIAL IV PRN (18:00)
[2022-04-21] MEDS: IPRATROPIUM/ALBUTEROL 0.5-3(2.5)MG/3ML NEB HHN PRN (18:11)
[2022-04-21] MEDS: ATORVASTATIN CALCIUM 40MG TABLET PO SCH (20:55)
[2022-04-22] VITALS (58 sets, daily range): BP systolic 92–206; BP diastolic 60–148
[2022-04-22] MEDS: HYDROCODONE/ACETAMINOPHEN 5/325MG TABLET PO PRN ×4 (00:13→17:20)
[2022-04-22] MEDS: IPRATROPIUM/ALBUTEROL 0.5-3(2.5)MG/3ML NEB HHN SCH ×6 (00:29→20:23)
[2022-04-22] MEDS: SODIUM CHLORIDE 0.9% 1,000 ML IV SCH ×2 (04:37→23:00)
[2022-04-22 04:51] LABS: HEMATOCRIT. 32.4 % (36.0-48.0); MEAN CORPUSCULAR HEMOGLOBIN 32.9 pg (28.0-32.0); MEAN CORPUSCULAR VOLUME 97.2 fL (81.0-99.0); MEAN PLATELET VOLUME 9.8 fl (7.4-10.4); PLATELET 147 x1000/uL (130-400); RED BLOOD CELL COUNT 3.33 mill/uL (4.2-5.4); RED CELL DISTRIBUTION WIDTH 13.3 % (11.6-14.6)
[2022-04-22 04:55] LABS: CHLORIDE 115 mEq/L (98-107)
[2022-04-22] MEDS: METHYLPREDNISOLONE SOD SUCC 125 MG/2 ML VIAL IV SCH ×3 (06:55→21:15)
[2022-04-22 07:08] LABS: PLATELET ESTIMATE NORMAL
[2022-04-22] MEDS: CALCITONIN,SALMON, 3.7 ML NASAL SPRAY ONENSTRL SCH (08:38)
[2022-04-22] MEDS: CITALOPRAM HYDROBROMIDE 10MG TABLET PO SCH (08:39)
[2022-04-22] MEDS: CARVEDILOL 3.125 MG TABLET PO SCH ×2 (08:39→21:15)
[2022-04-22] MEDS: FAMOTIDINE 20MG TABLET PO SCH ×2 (08:39→21:15)
[2022-04-22] MEDS: ASPIRIN 81MG TABLET PO SCH (08:39)
[2022-04-22] MEDS: ENOXAPARIN 30MG/0.3ML SYR SUBCUT SCH (08:39)
[2022-04-22] MEDS: LISINOPRIL 5MG TABLET PO SCH (08:39)
[2022-04-22] MEDS: CLONIDINE 0.1MG TABLET PO PRN (09:53)
[2022-04-22 10:13] LABS: BG BASE EXCESS -5.2 mmol/L (-2.0-2.0); BG CARBOXYHEMOGLOBIN 0.4 % (0.5-1.5); BG DEOXYHEMOGLOBIN 4.9 % (0.0-5.0); BG FRACTION INSPIRED OXYGEN 35; BG METHEMOGLOBIN 0.6 % (0.0-1.5); BG OXYGEN SATURATION 95.1 % (92.0-98.5); BG OXYHEMOGLOBIN 94.1 % (94.0-97.0); BG PCO2 38.1 mmHg (35.0-45.0); BG PH 7.338 (7.350-7.450); BG PO2 78.9 mmHg (75.0-100.0); BG SAMPLE SITE RIGHT RADIAL; BG TOTAL HEMOGLOBIN 13.6 g/dL (12.0-18.0); BG VENT MODE VENT - CPAP
[2022-04-22] MEDS: ATORVASTATIN CALCIUM 40MG TABLET PO SCH (21:15)
[2022-04-23] VITALS (96 sets, daily range): BP systolic 94–167; BP diastolic 59–100
[2022-04-23] MEDS: HYDROCODONE/ACETAMINOPHEN 5/325MG TABLET PO PRN ×5 (00:37→21:48)
[2022-04-23] MEDS: IPRATROPIUM/ALBUTEROL 0.5-3(2.5)MG/3ML NEB HHN SCH ×7 (00:39→23:33)
[2022-04-23 04:54] LABS: CHLORIDE 111 mEq/L (98-107)
[2022-04-23 05:02] LABS: HEMATOCRIT. 30.6 % (36.0-48.0); HEMOGLOBIN. 10.4 g/dL (12.0-16.0); MEAN CORPUSCULAR HEMOGLOBIN 33.1 pg (28.0-32.0); MEAN CORPUSCULAR VOLUME 97.8 fL (81.0-99.0); MEAN PLATELET VOLUME 10.1 fl (7.4-10.4); PLATELET 127 x1000/uL (130-400); RED BLOOD CELL COUNT 3.13 mill/uL (4.2-5.4); RED CELL DISTRIBUTION WIDTH 13.3 % (11.6-14.6)
[2022-04-23 06:12] LABS: PLATELET ESTIMATE SLIGHTLY DECREASED
[2022-04-23] MEDS: METHYLPREDNISOLONE SOD SUCC 125 MG/2 ML VIAL IV SCH ×3 (06:12→21:48)
[2022-04-23 09:30] LABS: BG BASE EXCESS -2.9 mmol/L (-2.0-2.0); BG CARBOXYHEMOGLOBIN 0.3 % (0.5-1.5); BG DEOXYHEMOGLOBIN 2.4 % (0.0-5.0); BG HCO3 ACT 20.5 mmol/L (22.0-26.0); BG METHEMOGLOBIN 0.2 % (0.0-1.5); BG OXYGEN SATURATION 97.6 % (92.0-98.5); BG OXYHEMOGLOBIN 97.1 % (94.0-97.0); BG PCO2 31.8 mmHg (35.0-45.0); BG PH 7.428 (7.350-7.450); BG PO2 100.9 mmHg (75.0-100.0); BG SAMPLE SITE RIGHT RADIAL; BG TOTAL HEMOGLOBIN 12.4 g/dL (12.0-18.0); BG VENT MODE VENT - SIMV
[2022-04-23] MEDS: FAMOTIDINE 20MG TABLET PO SCH ×2 (09:44→21:48)
[2022-04-23] MEDS: ASPIRIN 81MG TABLET PO SCH (09:44)
[2022-04-23] MEDS: CITALOPRAM HYDROBROMIDE 10MG TABLET PO SCH (09:45)
[2022-04-23] MEDS: LISINOPRIL 5MG TABLET PO SCH (09:45)
[2022-04-23] MEDS: CALCITONIN,SALMON, 3.7 ML NASAL SPRAY ONENSTRL SCH (09:45)
[2022-04-23] MEDS: ENOXAPARIN 30MG/0.3ML SYR SUBCUT SCH (09:45)
[2022-04-23] MEDS: CARVEDILOL 3.125 MG TABLET PO SCH ×2 (09:45→21:48)
[2022-04-23] MEDS: SODIUM CHLORIDE 0.9% 1,000 ML IV SCH (13:08)
[2022-04-23] MEDS: DEXMEDETOMIDINE 400 MCG/100 ML 100 ML IV PRN (13:08)
[2022-04-23] MEDS: ATORVASTATIN CALCIUM 40MG TABLET PO SCH (21:47)
[2022-04-24] VITALS (93 sets, daily range): BP systolic 90–219; BP diastolic 57–130
[2022-04-24] MEDS: CLONIDINE 0.1MG TABLET PO PRN ×2 (03:39→11:53)
[2022-04-24] MEDS: HYDROCODONE/ACETAMINOPHEN 5/325MG TABLET PO PRN ×4 (03:40→20:17)
[2022-04-24] MEDS: IPRATROPIUM/ALBUTEROL 0.5-3(2.5)MG/3ML NEB HHN SCH ×5 (03:52→20:49)
[2022-04-24] MEDS: METHYLPREDNISOLONE SOD SUCC 125 MG/2 ML VIAL IV SCH ×3 (05:50→22:13)
[2022-04-24] MEDS: SODIUM CHLORIDE 0.9% 1,000 ML IV SCH (05:51)
[2022-04-24 05:59] LABS: HEMATOCRIT. 32.2 % (36.0-48.0); HEMOGLOBIN. 10.9 g/dL (12.0-16.0); MEAN CORPUSCULAR VOLUME 97.7 fL (81.0-99.0); MEAN PLATELET VOLUME 10.6 fl (7.4-10.4); PLATELET 127 x1000/uL (130-400); RED CELL DISTRIBUTION WIDTH 13.1 % (11.6-14.6)
[2022-04-24 06:08] LABS: CHLORIDE 110 mEq/L (98-107)
[2022-04-24] MEDS: ENOXAPARIN 30MG/0.3ML SYR SUBCUT SCH (09:00)
[2022-04-24] MEDS: ACETAMINOPHEN 650MG/20.3ML UDC PO PRN (09:00)
[2022-04-24] MEDS: CITALOPRAM HYDROBROMIDE 10MG TABLET PO SCH (09:00)
[2022-04-24] MEDS: ASPIRIN 81MG TABLET PO SCH (09:00)
[2022-04-24] MEDS: FAMOTIDINE 20MG TABLET PO SCH (09:00)
[2022-04-24] MEDS: LISINOPRIL 5MG TABLET PO SCH (09:05)
[2022-04-24] MEDS: CARVEDILOL 3.125 MG TABLET PO SCH (09:05)
[2022-04-24] MEDS: DEXMEDETOMIDINE 400 MCG/100 ML 100 ML IV PRN (09:06)
[2022-04-24 09:51] LABS: BG BASE EXCESS -0.7 mmol/L (-2.0-2.0); BG CARBOXYHEMOGLOBIN 0.3 % (0.5-1.5); BG DEOXYHEMOGLOBIN 3.8 % (0.0-5.0); BG FRACTION INSPIRED OXYGEN 35; BG HCO3 ACT 23.9 mmol/L (22.0-26.0); BG METHEMOGLOBIN 0.3 % (0.0-1.5); BG OXYGEN SATURATION 96.2 % (92.0-98.5); BG OXYHEMOGLOBIN 95.6 % (94.0-97.0); BG PCO2 39.4 mmHg (35.0-45.0); BG PH 7.401 (7.350-7.450); BG PO2 80.8 mmHg (75.0-100.0); BG SAMPLE SITE RIGHT BRACHIAL; BG TOTAL RESPIRATORY RATE 25 b/min; BG VENT MODE VENT - AC
[2022-04-24] MEDS: CALCITONIN,SALMON, 3.7 ML NASAL SPRAY ONENSTRL SCH (11:54)
[2022-04-24] MEDS: ATORVASTATIN CALCIUM 40MG TABLET PO SCH (20:56)
[2022-04-25] VITALS (78 sets, daily range): BP systolic 95–183; BP diastolic 58–112
[2022-04-25] MEDS: HYDROCODONE/ACETAMINOPHEN 5/325MG TABLET PO PRN ×6 (00:22→22:40)
[2022-04-25] MEDS: IPRATROPIUM/ALBUTEROL 0.5-3(2.5)MG/3ML NEB HHN SCH ×6 (00:30→19:55)
[2022-04-25 05:47] LABS: HEMATOCRIT. 35.6 % (36.0-48.0); HEMOGLOBIN. 11.9 g/dL (12.0-16.0); MEAN CORPUSCULAR HEMOGLOBIN 32.5 pg (28.0-32.0); MEAN CORPUSCULAR VOLUME 97.1 fL (81.0-99.0); PLATELET 147 x1000/uL (130-400); RED BLOOD CELL COUNT 3.67 mill/uL (4.2-5.4)
[2022-04-25] MEDS: METHYLPREDNISOLONE SOD SUCC 125 MG/2 ML VIAL IV SCH ×3 (05:49→22:15)
[2022-04-25 05:54] LABS: CHLORIDE 107 mEq/L (98-107)
[2022-04-25] MEDS: SODIUM CHLORIDE 0.9% 1,000 ML IV SCH (06:19)
[2022-04-25 08:45] LABS: PLATELET ESTIMATE NORMAL
[2022-04-25] MEDS: CITALOPRAM HYDROBROMIDE 10MG TABLET PO SCH (09:00)
[2022-04-25] MEDS: CALCITONIN,SALMON, 3.7 ML NASAL SPRAY ONENSTRL SCH (09:10)
[2022-04-25] MEDS: LISINOPRIL 5MG TABLET PO SCH (09:44)
[2022-04-25] MEDS: ENOXAPARIN 30MG/0.3ML SYR SUBCUT SCH (09:44)
[2022-04-25] MEDS: ASPIRIN 81MG TABLET PO SCH (09:44)
[2022-04-25] MEDS: FAMOTIDINE 20MG TABLET PO SCH (09:48)
[2022-04-25] MEDS ORDERED: LIDOCAINE HCL 1% 30ML VIAL (10MG/ML) ONE (10:01)
[2022-04-25] MEDS: DEXMEDETOMIDINE 400 MCG/100 ML 100 ML IV PRN (10:21)
[2022-04-25] MEDS: CLONIDINE 0.1MG TABLET PO PRN ×2 (10:24→18:35)
[2022-04-25 11:37] LABS: PLATELET ESTIMATE NORMAL
[2022-04-25] MEDS: FLUCONAZOLE 400MG/200ML BAG 200 ML IV SCH (20:29)
[2022-04-25] MEDS: ATORVASTATIN CALCIUM 40MG TABLET PO SCH (20:56)
[2022-04-25] MEDS: PIPERACILLIN/TAZOBACTAM 3.375 G in DEXTROSE 5% WATER 50 ML IV SCH (22:15)
[2022-04-26] VITALS (81 sets, daily range): BP systolic 91–174; BP diastolic 59–104
[2022-04-26] MEDS: IPRATROPIUM/ALBUTEROL 0.5-3(2.5)MG/3ML NEB HHN SCH ×6 (01:20→20:15)
[2022-04-26] MEDS: HYDROCODONE/ACETAMINOPHEN 5/325MG TABLET PO PRN ×3 (03:20→15:56)
[2022-04-26] MEDS: PIPERACILLIN/TAZOBACTAM 3.375 G in DEXTROSE 5% WATER 50 ML IV SCH ×3 (05:40→21:34)
[2022-04-26] MEDS: METHYLPREDNISOLONE SOD SUCC 125 MG/2 ML VIAL IV SCH ×3 (05:40→21:20)
[2022-04-26] MEDS: SODIUM CHLORIDE 0.9% 1,000 ML IV SCH (05:48)
[2022-04-26 06:24] LABS: HEMATOCRIT. 35.4 % (36.0-48.0); HEMOGLOBIN. 11.9 g/dL (12.0-16.0); MEAN CORPUSCULAR HEMOGLOBIN 32.8 pg (28.0-32.0); MEAN CORPUSCULAR VOLUME 97.7 fL (81.0-99.0); MEAN PLATELET VOLUME 10.6 fl (7.4-10.4); PLATELET 138 x1000/uL (130-400); RED BLOOD CELL COUNT 3.63 mill/uL (4.2-5.4); RED CELL DISTRIBUTION WIDTH 12.9 % (11.6-14.6)
[2022-04-26] MEDS: DEXMEDETOMIDINE 400 MCG/100 ML 100 ML IV PRN (08:38)
[2022-04-26 09:33] LABS: PLATELET ESTIMATE NORMAL
[2022-04-26] MEDS: CITALOPRAM HYDROBROMIDE 10MG TABLET PO SCH (10:02)
[2022-04-26] MEDS: ASPIRIN 81MG TABLET PO SCH (10:02)
[2022-04-26] MEDS: FAMOTIDINE 20MG TABLET PO SCH (10:02)
[2022-04-26] MEDS: LISINOPRIL 5MG TABLET PO SCH (10:03)
[2022-04-26] MEDS: CALCITONIN,SALMON, 3.7 ML NASAL SPRAY ONENSTRL SCH (10:06)
[2022-04-26] MEDS: ENOXAPARIN 30MG/0.3ML SYR SUBCUT SCH (10:07)
[2022-04-26 11:34] LABS: CHLORIDE 107 mEq/L (98-107)
[2022-04-26] MEDS: FLUCONAZOLE 400MG/200ML BAG 200 ML IV SCH (21:19)
[2022-04-26] MEDS: ATORVASTATIN CALCIUM 40MG TABLET PO SCH (21:20)
[2022-04-26] MEDS: NYSTATIN 100,000 UNITS/GM CREAM 15GM TOP SCH (21:21)
[2022-04-27] VITALS (86 sets, daily range): BP systolic 24–214; BP diastolic 17–144
[2022-04-27] MEDS: IPRATROPIUM/ALBUTEROL 0.5-3(2.5)MG/3ML NEB HHN SCH ×6 (00:18→20:24)
[2022-04-27] MEDS: SODIUM CHLORIDE 0.9% 1,000 ML IV SCH (05:59)
[2022-04-27] MEDS: METHYLPREDNISOLONE SOD SUCC 125 MG/2 ML VIAL IV SCH ×2 (05:59→13:21)
[2022-04-27] MEDS: PIPERACILLIN/TAZOBACTAM 3.375 G in DEXTROSE 5% WATER 50 ML IV SCH ×2 (06:00→13:20)
[2022-04-27 06:29] LABS: HEMATOCRIT. 32.4 % (36.0-48.0); MEAN CORPUSCULAR VOLUME 97.5 fL (81.0-99.0); MEAN PLATELET VOLUME 10.4 fl (7.4-10.4); PLATELET 127 x1000/uL (130-400); RED BLOOD CELL COUNT 3.32 mill/uL (4.2-5.4); RED CELL DISTRIBUTION WIDTH 12.9 % (11.6-14.6)
[2022-04-27] MEDS: DEXMEDETOMIDINE 400 MCG/100 ML 100 ML IV PRN (07:26)
[2022-04-27] MEDS: HYDROCODONE/ACETAMINOPHEN 5/325MG TABLET PO PRN ×2 (07:42→12:09)
[2022-04-27] MEDS ORDERED: NALOXONE HCL 0.4MG/ML VIAL IV PRN (08:00)
[2022-04-27] MEDS: CITALOPRAM HYDROBROMIDE 10MG TABLET PO SCH (08:52)
[2022-04-27] MEDS: ASPIRIN 81MG TABLET PO SCH (08:52)
[2022-04-27] MEDS: FAMOTIDINE 20MG TABLET PO SCH (08:52)
[2022-04-27] MEDS: CALCITONIN,SALMON, 3.7 ML NASAL SPRAY ONENSTRL SCH (08:53)
[2022-04-27] MEDS: CLONIDINE 0.1MG TABLET PO PRN (08:53)
[2022-04-27] MEDS: ENOXAPARIN 30MG/0.3ML SYR SUBCUT SCH (08:54)
[2022-04-27] MEDS: NYSTATIN 100,000 UNITS/GM CREAM 15GM TOP SCH (08:54)
[2022-04-27 09:14] LABS: BG BASE EXCESS -1.1 mmol/L (-2.0-2.0); BG CARBOXYHEMOGLOBIN 0.3 % (0.5-1.5); BG DEOXYHEMOGLOBIN 1.9 % (0.0-5.0); BG FRACTION INSPIRED OXYGEN 35; BG METHEMOGLOBIN 0.3 % (0.0-1.5); BG OXYGEN SATURATION 98.1 % (92.0-98.5); BG OXYHEMOGLOBIN 97.5 % (94.0-97.0); BG PCO2 36.1 mmHg (35.0-45.0); BG PH 7.423 (7.350-7.450); BG PO2 117.4 mmHg (75.0-100.0); BG SAMPLE SITE LEFT RADIAL; BG VENT MODE VENT - SIMV
[2022-04-27 11:17] LABS: BG BASE EXCESS 0.4 mmol/L (-2.0-2.0); BG CARBOXYHEMOGLOBIN 0.2 % (0.5-1.5); BG DEOXYHEMOGLOBIN 3.7 % (0.0-5.0); BG FRACTION INSPIRED OXYGEN 35; BG HCO3 ACT 25.2 mmol/L (22.0-26.0); BG METHEMOGLOBIN 0.4 % (0.0-1.5); BG OXYGEN SATURATION 96.3 % (92.0-98.5); BG OXYHEMOGLOBIN 95.7 % (94.0-97.0); BG PCO2 41.5 mmHg (35.0-45.0); BG PH 7.402 (7.350-7.450); BG PO2 82.2 mmHg (75.0-100.0); BG SAMPLE SITE RIGHT RADIAL; BG TOTAL HEMOGLOBIN 12.2 g/dL (12.0-18.0); BG VENT MODE VENT - SIMV
[2022-04-27 11:40] LABS: CHLORIDE 105 mEq/L (98-107)
[2022-04-27 11:47] LABS: PLATELET ESTIMATE NORMAL
[2022-04-27 13:10] LABS: BG BASE EXCESS 1.6 mmol/L (-2.0-2.0); BG CARBOXYHEMOGLOBIN 0.3 % (0.5-1.5); BG DEOXYHEMOGLOBIN 3.3 % (0.0-5.0); BG FRACTION INSPIRED OXYGEN 35; BG HCO3 ACT 26.7 mmol/L (22.0-26.0); BG METHEMOGLOBIN 0.2 % (0.0-1.5); BG OXYGEN SATURATION 96.7 % (92.0-98.5); BG OXYHEMOGLOBIN 96.2 % (94.0-97.0); BG PCO2 44.1 mmHg (35.0-45.0); BG PO2 87.3 mmHg (75.0-100.0); BG SAMPLE SITE LEFT RADIAL; BG TOTAL HEMOGLOBIN 11.9 g/dL (12.0-18.0); BG VENT MODE VENT - CPAP
[2022-04-27] MEDS ORDERED: AMLODIPINE 10MG TABLET PO SCH (13:15)
[2022-04-27] MEDS ORDERED: VASOPRESSIN 20 UNIT in SODIUM CHLORIDE 0.9% 99 ML IV PRN (19:45)
[2022-04-27] MEDS ORDERED: NOREPINEPHRINE 32 MG in DEXT 5% WATER 218 ML IV PRN (19:45)
[2022-04-27 19:49] LABS: BG BASE EXCESS -5.6 mmol/L (-2.0-2.0); BG CARBOXYHEMOGLOBIN 0.3 % (0.5-1.5); BG DEOXYHEMOGLOBIN 11.9 % (0.0-5.0); BG FRACTION INSPIRED OXYGEN 60; BG HCO3 ACT 23.6 mmol/L (22.0-26.0); BG METHEMOGLOBIN 0.4 % (0.0-1.5); BG OXYHEMOGLOBIN 87.4 % (94.0-97.0); BG PCO2 69.4 mmHg (35.0-45.0); BG PH 7.149 (7.350-7.450); BG PO2 66.9 mmHg (75.0-100.0); BG TOTAL HEMOGLOBIN 8.9 g/dL (12.0-18.0); BG VENT MODE MASK - BIPAP
[2022-04-27] MEDS: FLUCONAZOLE 400MG/200ML BAG 200 ML IV SCH (20:30)
[2022-04-28] MEDS ORDERED: LISINOPRIL 10MG TABLET PO SCH (09:00)
== END 2022-04-27 21:49 | DRG 207 ==
LOC: ER 05:26 → 3WST 10:40 → ENRESERV 16:37 → MICUNO 04-13 00:30
PROVIDERS: ADMIT Internal Medicine Pulmonary Disease; ATTEND Internal Medicine Pulmonary Disease
PROC: 5A1955Z Respiratory Ventilation, Greater than 96 Consecutive Hours (ICD-10-PCS; principal; 2022-04-12)
PROC: 0BH17EZ Insertion of Endotracheal Airway into Trachea, Via Natural or Artificial Opening (ICD-10-PCS; 2022-04-12)
PROC: 5A09357 Assistance with Respiratory Ventilation, Less than 24 Consecutive Hours, Continuous Positive Airway Pressure (ICD-10-PCS; 2022-04-12)
PROC: 02HV33Z Insertion of Infusion Device into Superior Vena Cava, Percutaneous Approach (ICD-10-PCS; 2022-04-25)
PROC: B548ZZA Ultrasonography of Superior Vena Cava, Guidance (ICD-10-PCS; 2022-04-25)
PROC: 5A12012 Performance of Cardiac Output, Single, Manual (ICD-10-PCS; 2022-04-27)
PROC: 5A09357 Assistance with Respiratory Ventilation, Less than 24 Consecutive Hours, Continuous Positive Airway Pressure (ICD-10-PCS; 2022-04-27)
DX: J96.02 Acute respiratory failure with hypercapnia (principal); J69.0 Pneumonitis due to inhalation of food and vomit; I21.09 ST elevation (STEMI) myocardial infarction involving other coronary artery of anterior wall; I42.9 Cardiomyopathy, unspecified; M48.56XA Collapsed vertebra, not elsewhere classified, lumbar region, initial encounter for fracture; J44.1 Chronic obstructive pulmonary disease with (acute) exacerbation; G93.40 Encephalopathy, unspecified; Z68.1 Body mass index [BMI] 19.9 or less, adult; E87.20 Acidosis, unspecified; F11.20 Opioid dependence, uncomplicated; R63.0 Anorexia; I10 Essential (primary) hypertension; E78.00 Pure hypercholesterolemia, unspecified; E78.5 Hyperlipidemia, unspecified; M48.04 Spinal stenosis, thoracic region; M48.02 Spinal stenosis, cervical region; M81.0 Age-related osteoporosis without current pathological fracture; M19.09 Primary osteoarthritis, other specified site; E04.1 Nontoxic single thyroid nodule; M47.812 Spondylosis without myelopathy or radiculopathy, cervical region; Z88.8 Allergy status to other drugs, medicaments and biological substances; Z87.891 Personal history of nicotine dependence; Z96.659 Presence of unspecified artificial knee joint
CPT/HCPCS: 31500; 36415; 36573; 36600; 71045; 71275; 72141; 72146; 72148; 80048; 80053; 80061; 81003; 82375; 82553; 82805; 82962; 83735; 83880; 84100; 84145; 84443; 84484; 85025; 85027; 85379; 87070; 92950; 93005; 93306; 93971; 94002; 94003; 94640; 94660; 99285; A6261; C1725; J0456; J0696; J1200; J1450; J1650; J2060; J2370; J2543; J2930; J3480; J3490; J7030; J7060; J7512; Q9957; Q9967; A4315